=== PATIENT | male | born 1960 | race African-American/Black ===

== ENCOUNTER 2025-07-09 15:22 | Outpatient (CLI) | payer OTHER, SELFPAY ==
--- NOTE | ~2025-07-09 | CT_ITS ---
EXAMINATION: CT_LERTCWO_CT DATE: 07/09/2025 16:09 INDICATION: Right knee osteoarthritis. Preoperative planning. TECHNIQUE: Computed tomography (CT) of the right lower limb was performed without intravenous contrast. Automated exposure control and iterative reconstruction technique were employed. The dose-length product was 2212.76 mGy-cm. COMPARISON: Right knee radiographs 06/24/2025 FINDINGS: There is mild right hip osteoarthritis. The knee demonstrates severe osteoarthritis of the lateral compartment and moderate osteoarthritis of the medial and patellofemoral compartments. There is a moderate-sized knee joint effusion. IMPRESSION: 1. Severe right knee osteoarthritis 2. Moderate-sized right knee joint effusion. Reviewed, dictated and finalized at location E.
--- OUTSIDE RECORDS SUMMARY | 2025-07-09 15:26 | XMS_ITS | Encounter Summary ---
Author Organization [facility] Facility Care Team Providers Care Manager Trading Name Role Phone Axel Moreland MD Primary Care Provid er Lawanda Adams MD Primary Care Provide r Keturah Springer MD Primary Care Provider [phone] Encounter Details Date Type Department Care Team (Latest Contact Info) Description 04/04/2016 Orders Only [facility] CLINCON[facility] ProviderMarino MD [address] [place] [address] Social History Tobacco Use Types Packs/Day Years Used Date Smoking Tobacco: Never Assessed Sex and Gender Information Value Date Recorded Sex Assigned at Not on file Legal Sex Male 12:56 PM PRISON WARDEN Gender Identity Male 12/24/2021 4:10 PM PRISON WARDEN Sexual Orientation Not on file documented as of this encounter Plan of Treatment Not on file documented as of this encounter Procedures Procedure Name Priority Date/Time Associated Diagnosis Comments CARDIOLOGY REPORT 05/10/2016 12: 00 AM CDT documented in this encounter Results * CARDIOLOGY REPORT (05/10/2016 12:00 AM CDT) Anatomical Region Laterality Modality Other Narrative 05/10/2016 12:00 AM CDT Ordered by an unspecified provider. Historical Provider [facility] Final Result documented in this encounter Visit Diagnoses Not on filedocumented in this encounter Care Teams Manager Trading Relationship Specialty Start Date End Date Axel Moreland MD [address] [place] [address] PCP - General Family Medicine 01/31/19 04/04/19 Lawanda Adams MD [address] [place] [address] PCP - General Internal Medicine 04/05/19 01/13/20 Keturah Springer MD [address] [place] [address] PCP - General Family Medicine 01/14/20 documented as of this encounter
--- OUTSIDE RECORDS SUMMARY | 2025-07-09 15:26 | XMS_ITS | Encounter Summary ---
Author Organization [facility] Facility Care Team Providers Care Kier Pleater Name Role Phone Axel Moreland MD Primary Care Provid er Lawanda Adams MD Primary Care Provide r Keturah Springer MD Primary Care Provider [phone] Encounter Details Date Type Department Care Team (Latest Contact Info) Description 11/11/2015 Orders Only [facility] CLINCONV ProviderMarino MD [address] [place] [address] Social History Tobacco Use Types Packs/Day Years Used Date Smoking Tobacco: Never Assessed Sex and Gender Information Value Date Recorded Sex Assigned at Not on file 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 Historical Provider Final Res ult documented in this encounter Visit Diagnoses Not on filedocumented in this encounter Care Teams Kier Pleater Relationship Specialty Start Date End Date Axel Moreland MD [address] [place] [address] PCP - General Family Medicine 01/31/19 04/04/19 Lawanda Adams MD [address] [place] [address] PCP - General Internal Medicine 04/05/19 01/13/20 Keturah Springer MD [address] [place] [address] PCP - General Family Medicine 01/14/20 documented as of this encounter
--- OUTSIDE RECORDS SUMMARY | 2025-07-09 15:26 | XMS_ITS | Clinical Summary ---
Author Organization [facility] Address [facility] [place] [address] Care Team Providers Care Washer Cutter Name Role Phone Keturah Santos MD Primary Care Provider [phone] Allergies Active Allergy Reactions Criticality Noted Date Comments Penicillins GI Upset 08/20/2018 Medications amlodipine 10 MG tablet Take 10 mg by mouth daily. Active potassium chloride 10 MEQ Tab CR tablet Take 1 tablet by mouth 3 (three) times daily. Active lisinopril-hydro CHLOROthiazide 20-25 MG tablet Take 1 tablet by mouth daily. 03/12/2021 Active ezetimibe 10 MG tablet 03/07/2021 Active vitamin D3, cholecalciferol, (CHOLECALCIFEROL ) 5000 UNITS capsule Take 5,000 Units by mouth daily. Active celecoxib 200 MG capsule 03/09/2021 Active vitamin C 500 MG Chew Tab chewable tablet Chew 500 mg by mouth daily. Active rosuvastatin 20 MG tablet 07/24/2020 Active Family History Medical History Relation Comments Stroke Mother Relation Status Comments Brother Father Mother Social History Tobacco Use Types Packs/Day Years Used Date Smoking Tobacco: Former Cigarettes Smokeless Tobacco: Never Alcohol Use Standard Drinks/Week Comments No 0 (1 standard drink = 0.6 oz pur e alcohol) AUDIT-C Answer Date Recorded Frequency of Alcohol Consumption Never 08/20/2018 Average Number of Drinks Not on file 018 Frequency of Binge Drinking Not on file 01/2018 Sex and Gender Information Value Date Recorded Sex Assigned at Not on file Legal Sex Male 5:24 PM CDT Gender Identity Not on file Sexual Orientation Not on file Last Filed Vital Signs Vital Sign Reading Time Taken Comments Blood Pressure 155/88 03/30/2021 12:46 PM CDT Pulse 102 03/30/2021 12:46 PM CDT Temperature 36.7 C (98.1 F) 03/30/2021 12:46 PM CDT Respiratory Rate 18 03/30/2021 12:46 PM CDT Oxygen Saturation 99% 03/30/2021 12:46 PM CDT Inhaled Oxygen Concentration - - Weight 131.5 kg (290 lb) 03/30/2021 12:46 PM CDT Height 172.7 cm (5' 8) 03/30/2021 12:46 PM CDT Body Mass Index 44.09 03/30/2021 12:46 PM CDT Plan of Treatment Health Maintenance Due Date Last Done Comments Colorectal Cancer Screening Colonoscopy (10 Years) 1961 Annual Physical 1964 Hepatitis C 1979 DTaP, Tdap and Td Vaccines ( 1 - Tdap) 1980 Pneumococcal Vaccine: 50+ Ye ars (1 of 1 - PCV) 2011 Zoster Vaccines (1 of 2) 2011 COVID-19 Vaccine (1 - 2023-2 5 season) 2025 RSV Immunization or 60+ Years (1 - 1-dose 75+ series) 2036 Meningococcal B Vaccine Aged Out No l onger eligible based on patient's age to complete this topic Meningococcal Vaccine Aged Out No patricio mohan eligible based on patient's age to complete this topic RSV Immunizations Under 20 Months Aged Out No longer eligible based on patient's age to complete this topic Insurance [facility] Care Teams Washer Cutter Relationship Specialty Start Date End Date Keturah Santos MD PCP - General FAMILY PRACTICE 03/30/21
--- OUTSIDE RECORDS SUMMARY | 2025-07-09 15:26 | XMS_ITS | Encounter Summary ---
Author Organization [facility] Facility Care Team Providers Care Behavioral Health Professional Name Role Phone Axel Moreland MD Primary Care Provid er Lawanda Adams MD Primary Care Provide r Keturah Springer MD Primary Care Provider [phone] [phone] Encounter Details Date Type Department Care Team (Latest Contact Info) Description 12/17/2016 Orders Only [facility] CLINCONV Provider, MD Marino [address] [place] [address] Social History Tobacco Use Types Packs/Day Years Used Date Smoking Tobacco: Never Assessed Sex and Gender Information Value Date Recorded Sex Assigned at Not on file 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 Historical Provider Final Res ult documented in this encounter Visit Diagnoses Not on filedocumented in this encounter Care Teams Behavioral Health Professional Relationship Specialty Start Date End Date Axel Moreland MD [address] [place] [address] PCP - General Family Medicine 01/31/19 04/04/19 Lawanda Adams MD [address] [place] [address] PCP - General Internal Medicine 04/05/19 01/13/20 Keturah Springer MD [address] [place] [address] PCP - General Family Medicine 01/14/20 documented as of this encounter
--- OUTSIDE RECORDS SUMMARY | 2025-07-09 15:26 | XMS_ITS | Clinical Summary ---
Author Organization [facility] Address [address] [place] [address] Care Team Providers Care Water Quality Manager Name Role Phone Keturah Springer MD Primary Care Provider [phone] Allergies Active Allergy Reactions Criticality Noted Date Comments Penicillins Stomach upset,Nausea & Vomiting,Rash Medium 03/07/2018 Pt has stomach pain and diarrhea Rosuvastatin Muscle pain Medium 01/29/2021 Simvastatin Muscle pain Medium 01/29/2021 Medications ascorbic acid (VITAMIN C) 500 mg tablet,chewable Take 1 tablet/chew tab (500 mg total) by mouth daily Vitamin c oral Active cholecalciferol (VITAMIN D-3) 5,000 unit capsule Take 1 capsule (5,000 Units total) by mouth daily Active Allergy Relief, fexofenadine, 180 mg tabletIndicatio ns:Allergic rhinitis due to other allergic trigger, unspecified seasonality TAKE 1 TABLET(180 MG) BY MOUTH DAILY 30 tablet 3 12/30/19 23 Active bempedoic acid (Nexletol) 180 mg tabletIndicatio ns:Mixed hyperlipidemia, Primary hypertension Take 180 mg by mouth daily 30 tablet 5 03/30/20 23 Active blood pressure test kit-large kitIndications: Primary hypertension,Mo rbid obesity with BMI of 40.0-44.9, adult (HCC) 1 kit daily 1 kit 09/24/20 24 Active meloxicam (MOBIC) 15 mg tabletIndicatio ns:Osteoarthrit is Take 1 tablet (15 mg total) by mouth daily 30 tablet 2 11/13/19 25 Active lisinopril-hydr oCHLOROthiazide (ZESTORETIC) 20-25 mg per tablet TAKE 1 TABLET BY MOUTH DAILY 100 tablet 1 11/14/19 25 Active omeprazole (PriLOSEC) 40 mg capsuleIndicati ons:Laryngophar yngeal reflux (LPR) Take 1 capsule (40 mg total) by mouth daily 90 capsule 3 11/29/19 25 026 Active amLODIPine (NORVASC) 10 mg tablet TAKE 1 TABLET(10 MG) BY MOUTH DAILY 90 tablet 1 06/10/20 25 Active ezetimibe (ZETIA) 10 mg tabletIndicatio ns:Dyslipidemia TAKE 1 TABLET(10 MG) BY MOUTH DAILY 90 tablet 1 06/10/20 25 Active atorvastatin (LIPITOR) 10 mg tablet TAKE 1 TABLET(10 MG) BY MOUTH EVERY NIGHT 90 tablet 2 06/13/20 25 Active phentermine (ADIPEX-P) 37.5 mg tablet Take 1 tablet (37.5 mg total) by mouth daily before breakfast 30 tablet 2 06/24/20 25 Active atorvastatin (LIPITOR) 10 mg tablet TAKE 1 TABLET(10 MG) BY MOUTH EVERY NIGHT 90 tablet 2 11/15/19 25 025 Discontinued ezetimibe (ZETIA) 10 mg tabletIndicatio ns:Dyslipidemia Take 1 tablet (10 mg total) by mouth daily 90 tablet 02/13/20 25 025 Discontinued amLODIPine (NORVASC) 10 mg tablet Take 1 tablet (10 mg total) by mouth daily 90 tablet 02/13/20 25 025 Discontinued phentermine (ADIPEX-P) 37.5 mg tabletIndicatio ns:Morbid obesity with BMI of 40.0-44.9, adult (HCC) TAKE 1 TABLET(37.5 MG) BY MOUTH DAILY BEFORE BREAKFAST 30 tablet 2 02/27/20 25 025 Discontinued(Re order) Active Problems Problem Noted Date Diagnosed Date Controlled type 2 diabetes m ellitus without complication, without long-term current use of insulin 02/20/2025 Assessment & Plan (06/30/2025 11:51 PM CDT): Orders: Hemoglobin A1c; Future Comprehensive metabolic panel; Future Urinalysis reflex to microscopic; Future Albumin Creatinine Ratio, Urine; Future Assessment & Plan (04/10/2025 4:36 AM CDT): Chronic Stable Diet controlled Goal Hgba1c<6.5 Obesity (BMI 30-39.9) 02/20/2025 Assessment & Plan (06/30/2025 11:51 PM CDT): Assessment & Plan (04/10/2025 4:37 AM CDT): BMI Follow-up includes: nutrition counseling and exercise counseling. Cont phentermine Sensorineural hearing loss (SNHL) of both ears 0 11/29/2024 Type 2 diabetes mellitus with hyperlipidemia 02/2025 Assessment & Plan (04/10/2025 4:37 AM CDT): Chronic Stable Cont lipitro, zetia Goal: TC<200, LDL<100, TG<150 Hypertension associated with diabetes 11/21/2024 Assessment & Plan (04/10/2025 4:36 AM CDT): Chronic Stable Cont norvasc, zestoretic Goal: SBP<140, DBP<90 Primary osteoarthritis of right knee 11/21/2024 Laryngopharyngeal reflux (LPR) 01/23/2024 Statin intolerance 08/22/2023 Chronic pain of left knee 03/30/2023 Precordial pain 03/30/2023 Assessment & Plan (04/08/2023 6:19 AM CDT): New Follow up with cardiology Chronic pain of right knee 03/30/2023 Lightheadedness 02/17/2023 Morbid obesity with BMI of 40.0-44.9, adult 09/16 Assessment & Plan (06/30/2025 11:51 PM CDT): Assessment & Plan (11/21/2024 2:44 PM LINK AND LINK KNITTING MACHINE OPERATOR): BMI Follow-up includes: nutrition counseling and exercise counseling. Assessment & Plan (10/01/2024 7:03 AM LINK AND LINK KNITTING MACHINE OPERATOR): BMI Follow-up includes: nutrition counseling and exercise counseling. Assessment & Plan (10/23/2023 7:08 PM LINK AND LINK KNITTING MACHINE OPERATOR): BMI Follow-up includes: nutrition counseling and exercise counseling. Start wegovy Chronic pain of both knees 09/29/2022 Chronic bilateral low back pain without sciatica 09/29/2022 Mixed hyperlipidemia 08/06/2021 Assessment & Plan (06/30/2025 11:51 PM CDT): Orders: Comprehensive metabolic panel; Future Assessment & Plan (04/10/2025 4:37 AM CDT): Chronic Stable Cont lipitor, zetia Goal: TC<200, LDL<100, TG<150 Assessment & Plan (10/01/2024 7:03 AM LINK AND LINK KNITTING MACHINE OPERATOR): Chronic Is Stable Cont lipitor, zetia, nexletol Goal: TC<200, LDL<100, TG<150 Assessment & Plan (10/23/2023 7:08 PM LINK AND LINK KNITTING MACHINE OPERATOR): Chronic Stable Cont lipitor, zetia, nexletol Goal: TC<200, LDL<100, TG<150 Assessment & Plan (04/08/2023 6:19 AM CDT): Uncontrolled Start nexletol Goal: TC<200, LDL<100, TG<150 Assessment & Plan (04/05/2022 4:58 AM CDT): Chronic, uncontrolled Add nexletol Cont zetia Side effects: Intolerant to statins Goal: TC<200, LDL<100, TG<150 Assessment & Plan (08/17/2021 4:49 AM CDT): Chronic Cont zetia Goal: TC<200, LDL<100, TG<150 Left leg pain 03/31/2021 Assessment & Plan (03/31/2021 12:27 PM CDT): New Likely sciatica Order medrol pack, Ibuprofen, percocet Refer to pain management Acute pain of right knee 09/05/2020 Assessment & Plan (03/16/2021 9:08 PM CDT): Chronic Cont celebrex Assessment & Plan (09/07/2020 5:56 PM LINK AND LINK KNITTING MACHINE OPERATOR): New Order celebrex Order right knee xray Because Of current COVID pandemic, will avoid PT for now Pharyngoesophageal dysphagia 03/24/2020 Adult general medical exam 01/09/2020 Assessment & Plan (06/30/2025 11:51 PM CDT): Orders: PSA screen; Future Bilateral impacted cerumen 01/09/2020 Assessment & Plan (01/09/2020 8:06 PM CDT): New Refer to ENT Hypokalemia 01/09/2020 Assessment & Plan (01/09/2020 8:07 PM CDT): Stable Cont klorcon Morbid obesity due to excess calories 01/31/2017 Assessment & Plan (02/15/2021 9:26 PM CDT): BMI Follow-up includes: nutrition counseling and exercise counseling. Hypertension 06/07/2016 Assessment & Plan (06/30/2025 11:51 PM CDT): Orders: Comprehensive metabolic panel; Future Assessment & Plan (04/10/2025 4:36 AM CDT): Chronic Stable Cont norvasc, zestoretic Goal: SBP<140, DBP<90 Assessment & Plan (10/01/2024 7:03 AM LINK AND LINK KNITTING MACHINE OPERATOR): Chronic Is Stable Cont norvasc, zestoretic Goal: SBP<140, DBP<90 Assessment & Plan (10/23/2023 7:07 PM LINK AND LINK KNITTING MACHINE OPERATOR): Chronic Stable Cont norvasc, zestoretic Goal: SBP<140, DBP<90 Assessment & Plan (04/05/2022 4:57 AM CDT): Stable Cont amlodipine, zestoretic Goal: SBP<140, DBP<90 Assessment & Plan (08/17/2021 4:50 AM CDT): Stable Cont amlodipine, zestoretic Goal: SBP<140, DBP<90 Assessment & Plan (03/31/2021 12:32 PM CDT): Stable Cont amlodipine, zestoretic Assessment & Plan (02/15/2021 9:25 PM CDT): Stable Cont amlodipine, zestoretic Assessment & Plan (01/09/2020 8:06 PM CDT): Stable Cont amlodipine, zestoretic Metabolic syndrome 06/07/2016 Assessment & Plan (06/30/2025 11:51 PM CDT): Assessment & Plan (04/10/2025 4:37 AM CDT): BMI Follow-up includes: nutrition counseling and exercise counseling. Cont phentermine Assessment & Plan (10/23/2023 7:08 PM LINK AND LINK KNITTING MACHINE OPERATOR): New Order wegovy Obesity 06/07/2016 Abnormal EKG 05/11/2016 Chest pain, unspecified 05/11/2016 Allergic rhinitis Assessment & Plan (04/05/2022 4:59 AM CDT): Stable Cont joe Assessment & Plan (08/17/2021 4:50 AM CDT): Stable Cont joe Resolved Problems Problem Noted Date Diagnosed Date Resolved Date Hyperglycemia 08/04/2020 11/21/2024 Assessment & Plan (10/01/2024 7:03 AM LINK AND LINK KNITTING MACHINE OPERATOR): Chronic Stable Diet controlled Assessment & Plan (08/17/2021 4:50 AM CDT): Stable Diet controlled Assessment & Plan (02/15/2021 9:27 PM CDT): Stable Diet controlled Dyslipidemia 05/11/2016 08/06/2021 Assessment & Plan (03/31/2021 12:32 PM CDT): Chronic Cont zetia Assessment & Plan (03/16/2021 9:09 PM CDT): Chronic Cont zetia Assessment & Plan (02/15/2021 9:26 PM CDT): Uncontrolled Add zetia daily Assessment & Plan (01/09/2020 8:06 PM CDT): Stable Follow low cholesterol diet Encounters Date Type Department Care Team Description 07/04/2025 Telephone [facility] Medicine [address] [place] [phone] Keturah Springer MD Medical Records Request 06/24/2025 3:30 PM CDT Office Visit [facility] Medicine [address] [place] [phone] Keturah Springer MD Mixed hyperlipidemia (Primary Dx); Controlled type 2 diabetes mellitus without complication, without long-term current use of insulin; Primary hypertension; Morbid obesity with BMI of 40.0-44.9, adult (HCC); Metabolic syndrome; Obesity (BMI 30-39.9); Adult general medical exam 06/24/2025 Telephone [facility] Cardiology [address] [place] [address] [phone] Jey Hawley MD 05/06/2025 Telephone [facility] Family Medicine [address] [place] [phone] Keturah Springer MD 05/01/2025 2:45 PM CDT Office Visit [facility] Cardiology [address] [facility] [address] [place] [address] Jey Hawley MD Primary hypertension (Primary Dx); Dyslipidemia; Metabolic syndrome from Last 3 Months Immunizations Immunization Administration Dates Next Due Influenza, Quadrivalent, Spl it, Pediatric, Preservative Free, Intramuscular 07/17/2022 Influenza, Quadrivalent, Spl it, Preservative Free, Intramuscular 08/04/2020 Influenza, Trivalent, Preser vative Free, Intramuscular 07/23/2024 Influenza, Unspecified 07/11/2023,2021,08/04/2020(Defer red: Patient Refused) Moderna SARS-CoV-2 Monovalen t Vaccination (12+ YRS) 12/14/2020,11/17/2020 Medical History Medical History Date Comments Chest pain Abnormal EKG HTN (hypertension) HLD (hyperlipidemia) Allergic rhinitis HL (hearing loss) Arthritis Laryngopharyngeal reflux (LPR) Right knee injury Family History Medical History Relation Name Comments No Known Problems Father No Known Problems Mother Relation Name Status Comments Father Mother Social History Tobacco Use Types Packs/Day Years Used Date Smoking Tobacco: Former Cigarettes Q uit: 1989 Smokeless Tobacco: Never Tobacco Cessation:Counseling Given: Not Answered Alcohol Use Standard Drinks/Week Comments Never 0 (1 standard drink = 0.6 oz pur e alcohol) AUDIT-C Answer Date Recorded Q1: How often do you have a drink containing alcohol? Never 09/29/2022 Q2: How many drinks containi ng alcohol do you have on a typical day when you are drinking? Patient does not drink Q3: How often do you have si x or more drinks on one occasion? Never 09/29/2022 PHQ-2 Answer Date Recorded PHQ-2 Total Score (If total score is 3 or more points, staff should administer the PHQ-9) 1 06/24/2025 PHQ-9 Answer Date Recorded PHQ-9 Total Score 2 06/24/2025 Sex and Gender Information Value Date Recorded Sex Assigned at Not on file Legal Sex Male 12:56 PM LINK AND LINK KNITTING MACHINE OPERATOR Gender Identity Male 12/24/2021 4:10 PM LINK AND LINK KNITTING MACHINE OPERATOR Sexual Orientation Not on file Obstetrics History Last Filed Vital Signs Vital Sign Reading Time Taken Comments Blood Pressure 152/80 06/24/2025 3:52 PM CDT Pulse 92 06/24/2025 3:52 PM CDT Temperature 36.7 C (98 F) 06/24/2025 3:52 PM CDT Respiratory Rate 16 06/24/2025 3:52 PM CDT Oxygen Saturation 98% 06/24/2025 3:52 PM CDT Inhaled Oxygen Concentration - - Weight 112 kg (247 lb) 06/24/2025 3:52 PM CDT Height 172.7 cm (5' 8) 06/24/2025 3:52 PM CDT Body Mass Index 37.56 06/24/2025 3:52 PM CDT Plan of Treatment Health Maintenance Due Date Last Done Comments Hepatitis C Screening 1961 Dilated Eye Exam 1961 Foot Exam 1961 DTaP/Tdap/Td Vaccine (1 - Tdap) 1972 Hepatitis B Screening 1979 Regular Well Visit/Exam 18-64 1979 Pneumococcal vaccine <65 (1 of 2 - PCV) 1980 Zoster Vaccine (1 of 2) 2011 Covid-19 Vaccine (6 - 2024-2 6 season) 2025 05/14/2022, 12/19/2021, 05/22/2021, Additional history exists Influenza Vaccine (#1) 2025 , 07/11/2023, 07/17/2022, Additional history exists Hemoglobin A1C 12/19/2025 06/21/2025, 05/0 11/2024, 11/12/2024, Additional history exists Albumin Creatinine Ratio, Urine 02/15/2026 Lipid Panel 06/21/2026 06/21/2025, 10/18, 07/07/2024, Additional history exists eGFR 06/21/2026 06/21/2025, 05/0 11/2024, 11/12/2024, Additional history exists Depression Screening 06/24/2026 06/24/2025, 06/24/2025, 04/16/2024, Additional history exists Prostate Cancer Screening-PSA 07/07/2026, 02/05/2023, 03/27/2022, Additional history exists Colon Cancer Screening-Colonoscopy 11/27/2033 11/27/2023 Colon Cancer Screening-CT Colonography Discontinued 11/27/2023 Colon Cancer Screening-DNA Stool Discontinued 11/27/19 Colon Cancer Screening-FIT Discontinued 11/27/2023 Colon Cancer Screening-Sigmoidoscopy Discontinued 11/27/2023 Procedures Procedure Name Priority Date/Time Associated Diagnosis Comments LIPID PANEL Routine 06/21/2025 9:32 AM CDT Mixed hyperlipidemia COMPREHENSIVE METABOLIC PANEL Routine 06/21/2025 9:32 AM CDT Mixed hyperlipidemia Controlled type 2 diabetes mellitus without complication, without long-term current use of insulin Hypertension associated with diabetes (HCC) HEMOGLOBIN A1C Routine 06/21/2025 9:32 AM CDT Controlled type 2 diabetes mellitus without complication, without long-term current use of insulin ALBUMIN CREATININE RATIO, URINE Routine 02/15/2025 10:54 AM CDT Type 2 diabetes mellitus with hyperlipidemia (HCC) Morbid obesity with BMI of 40.0-44.9, adult (HCC) Hypertension associated with diabetes (HCC) PSA SCREEN Routine 07/07/2024 10:16 AM CDT Morbid obesity with BMI of 40.0-44.9, adult (HCC) Primary hypertension Mixed hyperlipidemia Hyperglycemia Adult general medical exam COLONOSCOPY Routine 11/27/2023 from Last 3 Months or Most Recently Relevant to Health Maintenance Results * (ABNORMAL) Hemoglobin A1c (06/21/2025 9:32 AM CDT) [facility] Hgb A1C 6.0(H) 4.8 - 5.6 % [facility] - 01 Comment: Prediabetes: 5.7 - 6.4 Diabetes: >6.4 Glycemic control for adults with diabetes: <7.0 Blood 06/21/2025 9:32 AM CDT 06/21/2025 Narrative [facility] - 06/22/2025 7:37 AM CDT Performed at: [facility] [id number] Head Irrigator: Beltran Keen PhD, Phone: [phone] Keturah Springer MD LAB BLOOD ORDERABLES Cassidy l Result Performing Organization Address [facility] Co de Phone Number [facility] * Lipid panel (06/21/2025 9:32 AM CDT) Cholesterol 140 100 - 199 mg/dL [facility] - 01 Triglycerides 66 0 - 149 mg/dL [facility] - 01 HDL Cholesterol 46 >39 mg/dL [facility] - 01 VLDL 13 5 - 40 mg/dL [facility] - 01 LDL, calculated 81 0 - 99 mg/dL [facility] - 01 Blood 06/21/2025 9:32 AM CDT 06/21/2025 Narrative [facility] - 06/22/2025 9:36 AM CDT Performed at: [address] [place] [id number] Head Irrigator: Beltran Keen PhD, Phone: [phone] Keturah Springer MD LAB BLOOD ORDERABLES Cassidy l Result Performing Organization Address [facility] Co de Phone Number [facility] * Comprehensive metabolic panel (06/21/2025 9:32 AM CDT) Glucose 85 70 - 99 mg/dL [facility] - 01 BUN 12 8 - 27 mg/dL [facility] - 01 Creatinine, Serum 1.05 0.76 - 1.27 mg/dL [facility] - 01 eGFR 79 >59 mL/min/1.73 [facility] - 01 BUN/creat ratio 11 10 - 24 [facility] - 01 Sodium 136 134 - 144 mmol/L [facility] - 01 Potassium, sr 4.3 3.5 - 5.2 mmol/L [facility] - 01 Chloride 100 96 - 106 mmol/L [facility] - 01 CO2 23 20 - 29 mmol/L [facility] - 01 Calcium 9.4 8.6 - 10.2 mg/dL [facility] - 01 Protein, sr 7.1 6.0 - 8.5 g/dL [facility] - 01 Albumin 4.2 3.9 - 4.9 g/dL [facility] - 01 Globulin, Total 2.9 1.5 - 4.5 g/dL [facility] - 01 Bilirubin, Total 0.6 0.0 - 1.2 mg/dL [facility] - 01 Alk phos 83 44 - 121 IU/L [facility] - 01 Comment: Effective July 01, 2025 Alkaline Phosphatase reference interval will be changing to: Age Male Female 0 - 5 days 47 - 127 47 - 127 6 - 10 days 29 - 242 29 - 242 11 - 20 days 109 - 357 109 - 357 21 - 30 days 94 - 494 94 - 494 1 - 2 months 149 - 539 149 - 539 3 - 6 months 131 - 452 131 - 452 7 - 11 months 117 - 401 117 - 401 12 months - 6 years 158 - 369 158 - 369 7 - 12 years 150 - 409 150 - 409 13 years 156 - 435 78 - 227 14 years 114 - 375 64 - 161 15 years 88 - 279 56 - 134 16 years 74 - 207 51 - 121 17 years 63 - 161 47 - 113 18 - 20 years 51 - 125 42 - 106 21 - 50 years 47 - 123 41 - 116 51 - 80 years 49 - 135 51 - 125 >80 years 48 - 129 48 - 129 AST 19 0 - 40 IU/L [facility] - 01 ALT 18 0 - 44 IU/L [facility] - 01 Blood 06/21/2025 9:32 AM CDT 06/21/2025 Narrative [facility] - 06/22/2025 7:37 AM CDT Performed at: - [address] [id number] Head Irrigator: Beltran Keen PhD, Phone: [phone] us Keturah Springer MD LAB BLOOD ORDERABLES Cassidy acuna Result [facility] - 01 * Albumin Creatinine Ratio, Urine (02/15/2025 10:54 AM CDT) Creatinine ur 230.8 Not Estab. mg/dL [facility] - 01 Microalbumin, ur 10.6 Not Estab. ug/mL [facility] - 01 Microalbumin/cre at ratio 5 0 - 29 mg/g creat [facility] - 01 Comment: Normal: 0 - 29 Moderately increased: 30 - 300 Severely increased: >300 Urine 02/15/2025 10:5 4 AM CDT 02/15/2025 Narrative [facility] - 02/16/2025 4:10 PM CDT Performed at: [address] [place] [id number] Head Irrigator: Beltran Keen PhD, Phone: [phone] Keturah Springer MD LAB URINE ORDERABLES Cassidy l Result Performing Organization Address [facility] Co de Phone Number [facility] - * PSA screen (07/07/2024 10:16 AM CDT) Pathologist [facility] PSA 0.6 0.0 - 4.0 ng/mL [facility] - Comment: Marleni ECLIA methodology. According to the [place] [employer], Serum PSA should decrease and remain at undetectable levels after radical prostatectomy. The AUA defines biochemical recurrence as an initial PSA value 0.2 ng/mL or greater followed by a subsequent confirmatory PSA value 0.2 ng/mL or greater. Values obtained with different assay methods or kits cannot be used interchangeably. Results cannot be interpreted as absolute evidence of the presence or absence of malignant disease. Blood 07/07/2024 10:1 6 AM CDT 07/07/2024 Narrative [facility] - 07/08/2024 7:35 AM CDT Performed at: [address] [place] [id number] Head Irrigator: Beltran Keen PhD, Phone: [phone] Keturah Springer MD LAB BLOOD ORDERABLES Cassidy l Result Performing Organization Address [facility]/ZIP Co de Phone Number [facility] - * Colonoscopy (11/27/2023) Anatomical Region Laterality Modality Other [facility] Provider ENDOSCOPY PROCEDURES Cassidy l Result from Last 3 Months or Most Recently Relevant to Health Maintenance Insurance [facility] [employer] [employer] [facility] [employer] PL[employer] Care Teams Water Quality Manager Relationship Specialty Start Date End Date Keturah Springer MD PCP - General Family Medicine 01/14/20
--- NOTE | 2025-07-09 15:29 | ECG_ITS ---
Test Date: 2025-07-09 15:41:11 Measurements Intervals [place] Rate: 79 P: 57 HI: 158 QRS: -4 QRSD: 81 T: 50 QT: 347 QTc: 400 Interpretive Statements SINUS RHYTHM MODERATE VOLTAGE CRITERIA FOR LVH, CONSIDER NORMAL VARIANT [MEETS CRITERIA IN ONE OF: R(aVL), S(V1), R(V5), R(V5/V6)+S(V1)] No previous ECG available for comparison Electronically Signed On 07-09-2025 15:56:59 CDT by Valentino Lopez M.D.
== END 2025-07-09 15:23 | disposition home or self-care (01) ==
PROVIDERS: PCP Family Medicine; Visit Provider Orthopaedic Surgery
DX: M17.11 Unilateral primary osteoarthritis, right knee (principal); I10 Essential (primary) hypertension
CPT/HCPCS: 73700; 93005

== ENCOUNTER 2025-09-18 13:50 | Outpatient (CLI) | payer OTHER, SELFPAY ==
--- OUTSIDE RECORDS SUMMARY | 2025-09-18 15:13 | XMS_ITS | Encounter Summary ---
Author Organization [facility] Facility Care Team Providers Care Service Counselor Name Role Phone Axel Moreland MD Primary Care Provid er Lawanda Adams MD Primary Care Provide r Keturah Springer MD Primary Care Provider [phone] [phone] Encounter Details Date Type Department Care Team (Latest Contact Info) Description 12/17/2016 Orders Only [facility] CLINCONV Provider, MD Marino [address] [place], [place] [id number] Social History Tobacco Use Types Packs/Day Years Used Date Smoking Tobacco: Never Assessed Sex and Gender Information Value Date Recorded Sex Assigned at Not on file Legal Sex 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
--- OUTSIDE RECORDS SUMMARY | 2025-09-18 15:13 | XMS_ITS | Encounter Summary ---
Author Organization [facility] Healthcare Address [address] [place] [address] Care Team Providers Care Advanced Manufacturing Vice President Name Role Phone Keturah Springer MD Primary Care Provider [phone] Reason for Visit * Reason Onset Date Comments Symptom Based Call 09/16/2025 Encounter Details Date Type Department Care Team (Late st Contact Info) Description 09/16/2025 Telephone [facility] Family Medicine [address] [place] [address] [address] [place] [address] Keturah Springer MD [address] [place] [address] [address] [place] [address] Symptom Based Call Social History Tobacco Use Types Packs/Day Years Used Date Smoking Tobacco: Former Cigarettes Q uit: 1989 Smokeless Tobacco: Never Alcohol Use Standard Drinks/Week Comments Never 0 [...] on file Legal 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 Non-Emergent. Is this a new or reoccurring symptom(s)? Reoccurring What have you tried to help your symptom(s)? Meloxicam, biofreeze Why was appointment not scheduled? Patient seeking care without an appointment; appointment was offered by [facility]. Additional Comments: Patient is having surgery later this month and will need to be off work for 3 months so he cannot afford to take any more time off of work. Patient requesting rx for celebrex andlidocaine patches or anything else pcp recommends. [facility] on file Does message need to be routed? Yes-Action Needed AURANT LINE COOK documented in this encounter Plan of Treatment Not on file documented as of this encounter Visit Diagnoses Not on filedocumented in this encounter Care Teams Advanced Manufacturing Vice President Relationship Specialty Start Date End Date Keturah Springer MD PCP - General Family Medicine 01/14/20 documented as of this encounter
--- OUTSIDE RECORDS SUMMARY | 2025-09-18 15:13 | XMS_ITS | Clinical Summary ---
Author Organization [facility] Address [facility] [place] [address] Care Team Providers Care Chain Sales Consultant Name Role Phone Keturah Santos MD Primary Care Provider [phone]- [phone] Allergies Active Allergy Reactions Criticality Noted Date [...] of 2) 2011 COVID-19 Vaccine (1 - 2024-2 6 season) 2025 Influenza Adult (#1) 2025 08/04/2020 RSV Immunization or 60+ Years (1 - 1-dose 75+ series) 2036 Hepatitis A Vaccines Aged Out No long er eligible based on patient's age to complete this topic Meningococcal B Vaccine Aged Out No l onger eligible based on patient's age to complete this topic Meningococcal Vaccine Aged Out No patricio mohan eligible based on patient's age to complete this topic RSV Immunizations Under 20 Months Aged Out No longer eligible based on patient's age to complete this topic Insurance R Member Subscriber Plan / Payer (Ef fective 2020-Present) Name:Mello Fatima Relation to Subscriber:Self Name:Mello Fatima Payer ID:[id number] (NAIC) Type:Not on file Address: [place] [id number] [place] [id number] Care Teams Chain Sales Consultant Relationship Specialty Start Date End Date Keturah Santos MD PCP - General FAMILY PRACTICE 03/30/21
--- OUTSIDE RECORDS SUMMARY | 2025-09-18 15:13 | XMS_ITS | Clinical Summary ---
Author Organization [facility] Address [address] [place] [address] Care Team Providers Care Business Transformation Consultant Name Role Phone Keturah Springer MD Primary Care Provider [phone] [phone] Allergies Active Allergy Reactions Criticality Noted Date [...] (5,000 Units total) by mouth daily Active bempedoic acid (Nexletol) 180 mg tabletIndication s:Mixed hyperlipidemia,P rimary hypertension Take 180 mg by mouth daily 30 tablet 5 03/30/20 23 Active blood pressure test kit-large kitIndications:P rimary hypertension,Mor bid obesity with BMI of 40.0-44.9, adult (HCC) 1 kit daily 1 kit 09/24/20 24 Active meloxicam (MOBIC) 15 mg tabletIndication s:Osteoarthritis Take 1 tablet (15 mg total) by mouth daily 30 tablet 2 11/13/19 25 Active omeprazole (PriLOSEC) 40 mg capsuleIndicatio ns:Laryngopharyn geal reflux (LPR) Take 1 capsule (40 mg total) by mouth daily 90 capsule 3 11/29/19 25 026 Active amLODIPine (NORVASC) 10 mg tablet TAKE 1 TABLET(10 MG) BY MOUTH DAILY 90 tablet 1 06/10/20 25 Active ezetimibe (ZETIA) 10 mg tabletIndication s:Dyslipidemia TAKE 1 TABLET(10 MG) BY MOUTH DAILY 90 tablet 1 06/10/20 25 Active atorvastatin (LIPITOR) 10 mg tablet TAKE 1 TABLET(10 MG) BY MOUTH EVERY NIGHT 90 tablet 2 06/13/20 25 Active phentermine (ADIPEX-P) 37.5 mg tablet Take 1 tablet (37.5 mg total) by mouth daily before breakfast 30 tablet 2 06/24/20 25 Active fluticasone propionate (FLONASE) 50 mcg/actuation nasal sprayIndications :Nasal congestion Administer 2 sprays into each nostril daily 16 g 08/02/20 25 Active fexofenadine (JOE) 180 mg tabletIndication s:Nasal congestion Take 1 tablet (180 mg total) by mouth daily as needed (allergies) 30 tablet 08/02/20 25 Active lisinopril-hydro CHLOROthiazide (ZESTORETIC) 20-25 mg per tablet TAKE 1 TABLET BY MOUTH DAILY 90 tablet 08/27/20 25 Active lisinopril-hydro CHLOROthiazide (ZESTORETIC) 20-25 mg per tablet TAKE 1 TABLET BY MOUTH DAILY 100 tablet 1 11/14/19 25 025 Discontinued Active Problems Problem Noted Date Diagnosed Date Nasal congestion 08/02/2025 Assessment & Plan (08/12/2025 3:23 AM CDT): Orders: azithromycin (ZITHROMAX) 250 mg tablet; Take 2 tabs (500 mg) by mouth today, than 1 tab (250 mg) daily for 4 days. fluticasone propionate (FLONASE) 50 mcg/actuation nasal spray; Administer 2 sprays into each nostril daily fexofenadine (JOE) 180 mg tablet; Take 1 tablet (180 mg total) by mouth daily as needed (allergies) Controlled type 2 diabetes m ellitus without [...] CDT): Assessment & Plan (11/21/2024 2:44 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): BMI Follow-up includes: nutrition counseling and exercise counseling. Assessment & Plan (10/01/2024 7:03 AM SECURITY SYSTEM ADMINISTRATOR): BMI Follow-up includes: nutrition counseling and exercise counseling. Assessment & Plan (10/23/2023 7:08 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): BMI Follow-up includes: nutrition counseling and exercise counseling. Start wegovy Chronic pain of both knees 09/29/2022 Chronic bilateral low back pain without sciatica 09/29/2022 Mixed hyperlipidemia 08/06/2021 Assessment & Plan (08/12/2025 3:23 AM CDT): Chronic Stable Cont lipitor, zetia, nexletol Goal: TC<200, LDL<100, TG<150 Assessment & Plan (06/30/2025 11:51 PM CDT): Orders: Comprehensive metabolic panel; Future Assessment & Plan (04/10/2025 4:37 AM CDT): Chronic Stable Cont lipitor, zetia Goal: TC<200, LDL<100, TG<150 Assessment & Plan (10/01/2024 7:03 AM SECURITY SYSTEM ADMINISTRATOR): Chronic Is Stable Cont lipitor, zetia, nexletol Goal: TC<200, LDL<100, TG<150 Assessment & Plan (10/23/2023 7:08 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): Chronic Stable Cont lipitor, zetia, nexletol Goal: [...] celebrex Assessment & Plan (09/07/2020 5:56 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): New Order celebrex Order right knee xray [...] exercise counseling. Hypertension 06/07/2016 Assessment & Plan (08/12/2025 3:23 AM CDT): Chronic Stable Cont lisinopril/hctz Goal: SBP<140, DBP<90 Assessment & Plan (06/30/2025 11:51 PM CDT): Orders: Comprehensive metabolic panel; Future Assessment & Plan (04/10/2025 4:36 AM CDT): Chronic Stable Cont norvasc, zestoretic Goal: SBP<140, DBP<90 Assessment & Plan (10/01/2024 7:03 AM SECURITY SYSTEM ADMINISTRATOR): Chronic Is Stable Cont norvasc, zestoretic Goal: SBP<140, DBP<90 Assessment & Plan (10/23/2023 7:07 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): Chronic Stable Cont norvasc, zestoretic Goal: SBP<140, [...] phentermine Assessment & Plan (10/23/2023 7:08 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): New Order sarahgovy Obesity 06/07/2016 Abnormal EKG 05/11/2016 Chest pain, unspecified 05/11/2016 Allergic rhinitis Assessment & Plan (04/05/2022 4:59 AM CDT): Stable Cont joe Assessment & Plan (08/17/2021 4:50 AM CDT): Stable Cont joe Resolved Problems Problem Noted Date Diagnosed Date Resolved Date Hyperglycemia 08/04/2020 11/21/2024 Assessment & Plan (10/01/2024 7:03 AM SECURITY SYSTEM ADMINISTRATOR): Chronic Stable Diet controlled Assessment & Plan [...] Encounters Date Type Department Care Team Description 09/17/2025 Nurse Triage [facility] Family Medicine [address] [place] [address] [place] [phone] Keturah Springer MD 09/16/2025 Telephone [facility] Family Medicine [address] [place] [address] [address] [place] [phone] Keturah Springer MD Symptom Based Call 08/05/2025 Telephone [facility] Cardiology [address] [place] [address] [phone] Jey Hawley MD 08/02/2025 9:15 AM CDT Telemedicine [facility] Medicine [address] [place] [address] [address] [place] [phone] Keturah Springer MD Nasal congestion (Primary Dx); Mixed hyperlipidemia; Primary hypertension 07/31/[address] [place] [phone] Keturah Springer MD Symptom Based Call 07/04/[address] [place] [phone] Keturah Springer MD Medical Records Request 06/24/2025 3:30 PM CDT Office Visit [address] [place] [phone] Keturah Springer MD Mixed hyperlipidemia (Primary Dx); Controlled type 2 diabetes mellitus without complication, without long-term current use of insulin; Primary hypertension; Morbid obesity with BMI of 40.0-44.9, adult (HCC); Metabolic syndrome; Obesity (BMI 30-39.9); Adult general medical exam 06/24/2025 Telephone [facility] Cardiology [address] [place] [address] [phone] Jey Hawley MD from Last 3 Months Immunizations Immunization Administration Dates Next Due Influenza, Quadrivalent, Spl it, Pediatric, Preservative Free, Intramuscular 07/17/2022 Influenza, Quadrivalent, Spl it, Preservative Free, Intramuscular 08/04/2020 Influenza, Trivalent, Preser vative Free, Intramuscular 07/23/2024 Influenza, Unspecified 07/24/2025,2022,07/17/2022,08/04(Deferred: Patient Refused) Moderna SARS-CoV-2 Monovalen t Vaccination [...] on file Legal Sex Male 12:56 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 Gender Identity Male 12/24/2021 4:10 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 Sexual Orientation Not on file Last Filed Vital Signs Vital Sign Reading Time Taken Comments Blood Pressure 152/80 06/24/2025 3:52 PM CDT Pulse 92 06/24/2025 3:52 PM CDT Temperature 36.7 C (98 F) 06/24/2025 3:52 PM CDT Respiratory Rate 16 06/24/2025 3:52 PM CDT Oxygen Saturation 98% 06/24/2025 3:52 PM CDT Inhaled Oxygen Concentration - - Weight 112 kg (246 lb 14.6 oz) 08/02/2025 9:44 A M CDT Height 172.7 cm (5' 7.99) 08/02/2025 9:44 AM CD T Body Mass Index 37.55 08/02/2025 9:44 AM CDT Plan of Treatment Health Maintenance Due [...] 2025 05/14/2022, 12/19/2021, 05/22/2021, Additional history exists Hemoglobin A1C 12/19/2025 06/21/2025, 050 11/2024, 11/12/2024, Additional history exists Albumin Creatinine Ratio, Urine 02/15/2026 Lipid Panel 06/21/2026 06/21/2025, 10/18, 07/07/2024, Additional history exists eGFR 06/21/2026 06/21/2025, 050 11/2024, 11/12/2024, Additional history exists Depression Screening 06/24/2026 06/24/2025, 06/24/2025, 04/16/2024, Additional history exists Prostate Cancer Screening-PSA 07/07/2026, 02/05/2023, 03/27/2022, Additional history exists Colon Cancer Screening-Colonoscopy 11/27/2033 11/27/2023 Colon Cancer Screening-CT Colonography Discontinued 11/27/2023 Colon Cancer Screening-DNA Stool Discontinued 11/27/19 Colon Cancer Screening-FIT Discontinued 11/27/2023 Colon Cancer Screening-Sigmoidoscopy Discontinued 11/27/2023 Influenza Vaccine Completed 07/24/2025, , 07/11/2023, Additional history exists Procedures Procedure Name Priority Date/Time Associated Diagnosis [...] (ABNORMAL) Hemoglobin A1c (06/21/2025 9:32 AM CDT) Hgb A1C 6.0(H) 4.8 - 5.6 % [facility] - 01 Comment: Prediabetes: 5.7 - 6.4 Diabetes: >6.4 Glycemic control for adults with diabetes: <7.0 Blood 06/21/2025 9:32 AM CDT 06/21/2025 Narrative [facility] - 06/22/2025 7:37 AM CDT Performed at: [address] [id number] Post Splitter: Beltran Keen PhD, Phone: [phone] us Keturah Springer MD LAB BLOOD ORDERABLES Cassidy l Result [facility] - 01 * Lipid panel (06/21/2025 9:32 AM CDT) [...] - 06/22/2025 9:36 AM CDT Performed at: [address] [id number] Post Splitter: Beltran Keen PhD, Phone: [phone] us Keturah Springer MD LAB BLOOD ORDERABLES Cassidy acuna Result [facility] - 01 * Comprehensive metabolic panel (06/21/2025 9:32 AM [...] - 06/22/2025 7:37 AM CDT Performed at: [address] [id number] Post Splitter: Beltran Keen PhD, Phone: [phone] Keturah Springer MD LAB BLOOD ORDERABLES Cassidy l Result Performing Organization Address [facility] de Phone Number [facility] - * Albumin Creatinine Ratio, Urine (02/15/2025 10:54 [...] - 02/16/2025 4:10 PM CDT Performed at: [address] [id number] Post Splitter: Beltran Keen PhD, Phone: [phone] Keturah Springer MD LAB URINE ORDERABLES Cassidy l Result Performing Organization Address [facility] Co de Phone Number [facility] - * PSA screen (07/07/2024 10:16 AM CDT) PSA 0.6 0.0 - 4.0 ng/mL [facility] - 01 Comment: Marleni ECLIA methodology. According to the [employer] [employer], Serum PSA should decrease and [...] - 07/08/2024 7:35 AM CDT Performed at: - [place] [id number] Post Splitter: Beltran Keen PhD, Phone: [phone] Keturah Springer MD LAB BLOOD ORDERABLES Cassidy l Result [facility] - 01 * Colonoscopy (11/27/2023) Anatomical Region Laterality Modality Other Historical Provider ENDOSCOPY PROCEDURES Cassidy kalpana Result from Last 3 Months or Most Recently Relevant to [place] [id number] [facility] Care Teams Business Transformation Consultant Relationship Specialty Start Date End Date Keturah Springer MD PCP - General Family Medicine 01/14/20
--- OUTSIDE RECORDS SUMMARY | 2025-09-18 15:13 | XMS_ITS | Encounter Summary ---
Author Organization [facility] Facility Care Team Providers Care Boat Crew Deck Hand Name Role Phone Aexl Moreland MD Primary Care Provid er Lawanda Adams MD Primary Care Provide r Keturah Springer MD Primary Care Provider [phone] [phone] Encounter Details Date Type Department Care Team (Latest Contact Info) Description 11/11/2015 Orders Only [facility] CLINCONV ProviderMarino MD [address] [place] [address] Social History Tobacco Use Types Packs/Day Years Used Date Smoking Tobacco: Never Assessed Sex and Gender Information Value Date Recorded Sex Assigned at Not on file Legal Sex Male 12:56 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
--- OUTSIDE RECORDS SUMMARY | 2025-09-18 15:13 | XMS_ITS | Encounter Summary ---
Author Organization [facility] Facility Care Team Providers Care Core Laying Machine Operator Name Role Phone Axel Moreland MD Primary Care Provid er Lwaanda Adams MD Primary Care Provide r Keturah Springer MD Primary Care Provider [phone] -[phone] Encounter Details Date Type Department Care Team (Latest Contact Info) Description 04/04/2016 Orders Only [facility] CLINCONV ProviderMarino MD [address] [place], [place] [id number] Social History Tobacco Use Types Packs/Day Years Used Date Smoking Tobacco: Never Assessed Sex and Gender Information Value Date Recorded Sex Assigned at Not on file 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
--- OUTSIDE RECORDS SUMMARY | 2025-09-18 15:13 | XMS_ITS | Encounter Summary ---
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 TING CONTRACTOR * Telephone Encounter - Shannan Rouse - 09/17/2025 11:32 AM CST [facility] asked for results of test or hosp note stating that pt has heart diease or what testing was done last so that he can be cleared. FAX [phone] Please advise. TING CONTRACTOR * Telephone Encounter - Radha Sewell MA - 06/25/2025 9:25 AM CDT Faxed cardiac clearance letter. * Telephone Encounter - Jey Hawley MD - 06/24/2025 4:47 PM CDT When I saw him recently denied any chest pain shortness breath. He also lost weight. Based on that patient can have surgery from cardiac standpoint with acceptable risk. His recent cardiac workup is negative for ischemia. * Telephone Encounter - Erica Boland - 06/24/2025 2:13 PM CDT Received cardiac clearance request FROM: [facility] FOR: Rt total knee arthroplasty PROCEDURE SCHEDULED: TBD LAST OFFICE VISIT: 05/01/25 NEXT OFFICE VISIT: 11/06/25 ANTICOAG: PENDING TESTING: FAX: [phone] documented in this encounter Plan of Treatment Not on file documented as of this encounter Visit Diagnoses Not on filedocumented in this encounter Care Teams Diploma Pharmacy Technician Relationship Specialty Start Date End Date Keturah Springer MD PCP - General Family Medicine 01/14/20 documented as of this encounter
--- OUTSIDE RECORDS SUMMARY | 2025-09-18 15:13 | XMS_ITS | Encounter Summary ---
Author Organization [facility] Healthcare Address [address] [place] [address] Care Team Providers Care Renal Dialysis Rn Name Role Phone Keturah Springer MD Primary Care Provider [phone] Reason for Visit * Reason Onset Date Comments Back Pain 09/17/2025 Encounter Details Date Type Department Care Team (Late st Contact Info) Description 09/17/2025 Nurse Triage [facility] Family Medicine [address] [place] [address] [address] [place] [address] Keturah Springer MD [address] [place] [address] [address] [place] [address] Social History Tobacco Use Types Packs/Day [...] on file Legal Sex Male 12:56 PM DENTAL CHAIRSIDE ASSISTANT Gender Identity Male 12/24/2021 4:10 PM DENTAL CHAIRSIDE ASSISTANT Sexual Orientation Not on file documented as of this encounter Miscellaneous Notes * Telephone Encounter - Agnes Espinoza RN - 09/17/2025 9:21 AM DENTAL CHAIRSIDE ASSISTANT Reason for Conversation Back Pain Background X2 weeks pain in low back/buttocks that radiates down front of left leg. Is having some improvementbut is getting TKR end of the month and wanted to have treatment for the back pain before this. No known injuries or activities to cause pain. Rates pain today 5-810. Pt is able to work. Certain movements or walking can bring on worsening pain. Denies abd pain, fever, urine s/s. RN gave care advice and scheduled at [facility] tomorrow as pt requested, no open OV to accommodate pt schedule. To call if worsens or needs f/u. Disposition See Within 3 Days in Office Reason for Disposition MODERATE back pain (e.g., interferes with normal activities) and present > 3 days Protocols Used Back [id number]-MS AL CHAIRSIDE ASSISTANT * Telephone Encounter - Agnes Espinoza RN - 09/17/2025 9:20 AM DENTAL CHAIRSIDE ASSISTANT Regarding: Moderate to Severe Sciatic pain from buttocks to left leg ----- Message from [place] R sent at 09/17/2025 9:15 AM DENTAL CHAIRSIDE ASSISTANT ----- Symptom Based Call Chief Complaint(s): Moderate to Severe Sciatic pain from buttocks to left leg Duration: 2 weeks What type of symptom(s) is the patient experiencing? Red Flag. Is the patient concerned they are experiencing a medical emergency requiring an ambulance? No Additional Comments: patient is able to go to work but must stop whenever pain hits Does message need to be routed? Yes-Action Needed AL CHAIRSIDE ASSISTANT documented in this encounter Plan of Treatment Not on file documented as of this encounter Visit Diagnoses Not on filedocumented in this encounter Care Teams Renal Dialysis Rn Relationship Specialty Start Date End Date Keturah Springer MD PCP - General Family Medicine 01/14/20 documented as of this encounter
[2025-09-18 15:33] LABS: Hematocrit 44.4 % (42.0-52.0); Hemoglobin 14.8 g/dL (14.0-18.0); Immature Granulocyte Percent A 0.2 % (0-0.5); Lymphocytes Absolute Auto 2.42 K/mm3 (0.9-3.2); Mean Corpuscular HGB Conc 33.3 g/dl (32-36); Mean Corpuscular Hemoglobin 27.9 pg (26-34); Mean Corpuscular Volume 83.6 fl (80-100); Nucleated Red Blood Cells Absolute Auto 0.000 K/mm3 (0.0-0.012); Nucleated Red Blood Cells Perc 0.0 % (0.0-0.2); Platelet Count Result 153 k/mm3 (150-375); Red Blood Count 5.31 M/mm3 (4.6-6.20); White Blood Count 6.2 K/mm3 (4.5-10.0)
[2025-09-18 15:45] LABS: Albumin Level 4.6 g/dL (3.5-5.1); Estimated Glomerular Filt Rate > 60; Glucose 90 mg/dL (65-110)
[2025-09-18 15:58] LABS: Hemoglobin A1C 5.9 % (<5.7)
[2025-09-18 16:44] LABS: MRSA (PCR) NOT DETECTED (NOT DETECTE)
== END 2025-09-18 13:51 | disposition home or self-care (01) ==
LOC: ANHSURGERY 13:56
PROVIDERS: PCP Family Medicine; Visit Provider Orthopaedic Surgery
DX: Z01.812 Encounter for preprocedural laboratory examination (principal); M17.11 Unilateral primary osteoarthritis, right knee
CPT/HCPCS: 80307; 82040; 82565; 82947; 83036; 85025; 87641

== ENCOUNTER 2025-10-15 00:11 | Day surgery (SDC) | payer OTHER, SELFPAY ==
[2025-09-18 14:09] VITALS: BMI 38.8
[2025-09-18 14:22] VITALS: BP 136/76; PULSE 66; RESP 16; TEMP 37.2; O2SAT 99
--- NOTE | 2025-09-18 14:42 | PC.NURSE ---
[facility] has started construction of its new state of the art ER which will open Spring 2026. With this, we anticipate parking may be a challenge for some our surgical patients and families. Parking spaces are limited but are available for all Surgical, obstetrics, and ER patients sharing this lot. If you arrive and find you are having a hard time finding a parking space, please note that we understand the challenges, please drive around the hospital and park near Hospital Entrance 1. When you enter this entrance, you can ask a volunteer to direct or take you back to the surgical waiting area to check in. We appreciate everyone?s understanding of these expected challenges while we build for your future. Report to the Outpatient Waiting Room, entrance under the green pavilion located off [address], at time ___6:00AM___ on date ___10/15/25__. Planned Procedure Time: ___7:30AM____.? Time changes happen often and if your time is changed the preop area will call you the afternoon before. - You and your visitor will be asked to self-screen and do not enter if you have any COVID symptoms. Please call surgeon if you need to reschedule. - A mask is optional within the hospital at this time. Patients may have clear liquids (water, carbonated beverages, clear teas, apple juice) until 3 hours prior to surgery (4:30AM) with a maximum of 20 ounces. - No food from midnight until time of surgery and no smoking, or chewing tobacco (or any form of nicotine). No chewing gum, candy or mints. Take only the following medications with a SIP of water on the morning of surgery: ____AMLODIPINE DO NOT STOP ANY OF YOUR OTHER PRESCRIPTION MEDICATIONS PRIOR TO SURGERY EXCEPT THE FOLLOWING Hold all vitamins and supplements for 3 days per anesthesiologist.--LAST DOSE 10/11/25 Medications to discontinue per physician __HOLD MELOXICAM (ALL NSAIDS) 7 DAYS PRE-OP PER DR OLIVA____ Date to take last dose 10/07/25 Please no make-up, nail vatican citizen, hairspray, perfume, deodorant, or body powder the day of surgery.? No jewelry (including any body piercings) or valuables the day of surgery, leave them at home.? Please take a shower or bath the night before, or the morning of, surgery with an antibacterial soap.? Wear comfortable, loose fitting clothing.? - Jewelry must be removed prior to entering the operating room.? Rings and piercings that are not removed may be cut off. - The hospital will not accept responsibility for valuables.? - Please leave all valuables, including medications, at home the day of surgery. If you are going home after surgery, a licensed tractor driver must drive you home.? - NO public transportation without another adult if you receive anesthesia. - We recommend that an adult stay with you for 24 hours following discharge. - We also recommend that you do not drive, make important decision, drink alcoholic beverages, or take any drugs that were not prescribed by your health care provider for at least 24 hours after your discharge time. Follow any additional instructions given to you from your surgeon. Telephone instructions given to ___PATIENT & NEPHEW and asked if any additional questions and then verbalized understanding. Patient advised to call surgeon office or pre surgery nurse liaison [phone] if any additional questions.
[2025-10-15] VITALS (12 sets, daily range): BP systolic 104–161; BP diastolic 57–83; PULSE 87–109; RESP 14–22; TEMP 36.2–36.8; O2SAT 91–100
--- NOTE | ~2025-10-15 | XR_ITS ---
EXAMINATION: [id number] DATE: 10/15/2025 15:04 HEALTH SCREENER INDICATION: Right total knee arthroplasty TECHNIQUE: 2 views right knee FINDINGS: There is a right total knee arthroplasty in expected position. Subcutaneous gas with fluid and air in the joint are consistent with recent surgery. No evidence of periprosthetic fracture. IMPRESSION: 1. Recent right total knee arthroplasty. Reviewed, dictated and finalized at location O. TH SCREENER
--- NOTE | 2025-10-15 10:40 | WPDHPUPDATE1 ---
History and Physical Update Update Date/Time: 10/15/25 10:40 History and Physical has been reviewed, including an updated exam of the patient. There are NO changes in the patient's condition. Risks, benefits, and alternatives have been discussed and questions answered. Patient agrees to proceed with procedure.
[2025-10-15] MEDS: LACTATED RINGERS 1,000 ML 30 ML IV CONT (11:00)
[2025-10-15] MEDS: ACETAMINOPHEN 500 MG TABLET 1000 MG PO (11:00)
[2025-10-15] MEDS: TRANEXAMIC ACID 1,000MG/ISO100 1,000 MG/100 ML BAG 200 MG IVPB (11:30)
[2025-10-15 11:56] LABS: Anion Gap 5 mmol/L (4-12); Blood Urea Nitrogen 17 mg/dL (9-20); Calcium 9.0 mg/dL (8.4-10.2); Carbon Dioxide 24 mmol/L (22-30); Chloride 107 mmol/L (98-107); Estimated CRCL calculation 79 ml/min; Estimated Glomerular Filt Rate > 60; Glucose 91 mg/dL (65-110); Potassium 4.2 mmol/L (3.4-5.0); Sodium 136 mmol/L (137-145)
--- NOTE | 2025-10-15 12:01 | WPDANESEPPF ---
Anes - Initial Pre Proc Eval Procedure: Operation Date: 10/15/25 12:00 Proposed Procedures p Right Custom Total Knee Arthroplasty - Hever Berumen MD Date/Time: 10/15/25 12:01 Surgeon: Hever Berumen MD Pre Op Diagnosis: primary OA right knee Patient Data Age: 65 Gender: M Height: 1.7 m Weight: 109.7 kg Last Vital Signs Temp 37.2 C 09/18/25 14:22 Pulse 66 09/18/25 14:22 Resp 16 09/18/25 14:22 BP 136/76 09/18/25 14:22 Pulse Ox 99 09/18/25 14:22 O2 Del Method Room Air 09/18/25 14:22 Allergies Allergy/AdvReac Type Severity Reaction Status Date / Time penicillin G AdvReac Abdominal Verified 10/15/25 11:34 Pain, DIARRHEA Home Medications ?Medication ?Instructions ?Recorded ?Confirmed ?Type amlodipine 10 mg tablet (Norvasc) 10 mg PO DAILY 11/27/24 09/18/25 History ascorbic acid (vitamin C) 500 mg 500 mg PO DAILY 11/27/24 09/18/25 History chewable tablet atorvastatin 10 mg tablet (Lipitor) 10 mg PO DAILY 11/27/24 09/18/25 History bempedoic acid 180 mg tablet 180 mg PO DAILY 11/27/24 09/18/25 History cholecalciferol (vitamin D3) 125 125 mcg PO DAILY 11/27/24 09/18/25 History mcg (5,000 unit) capsule ezetimibe 10 mg tablet 10 mg PO DAILY 11/27/24 09/18/25 History fexofenadine 180 mg tablet 180 mg PO DAILY PRN allergic 11/27/24 09/18/25 History (Allergy Relief (fexofenadine)) symptoms lisinopril 20 1 tablet PO DAILY 11/27/24 09/18/25 History mg-hydrochlorothiazide 25 mg tablet meloxicam 15 mg tablet 15 mg PO DAILY 11/27/24 09/18/25 History omeprazole 40 mg capsule,delayed 40 mg PO DAILY PRN indigestion 11/27/24 09/18/25 History release phentermine 37.5 mg capsule 37.5 mg PO DAILY 11/27/24 09/18/25 History aspirin 81 mg tablet,delayed 81 mg PO BID 14 days #28 tabs 10/15/25 Rx release oxycodone-acetaminophen 5 mg-325 1 - 2 tablet PO Q4-6H PRN pain 7 10/15/25 Rx mg tablet days #30 tabs prednisone 5 mg tablet 5 mg PO DAILY 3 weeks #21 tabs 10/15/25 Rx Laboratory Tests 10/15/25 10/15/25 10:34 11:23 Sodium 136 L mmol/L (137-145) Potassium 4.2 mmol/L (3.4-5.0) Chloride 107 mmol/L (98-107) Carbon Dioxide 24 mmol/L (22-30) Anion Gap 5 mmol/L (4-12) BUN 17 mg/dL (9-20) Creatinine 0.99 mg/dL (0.7-1.3) Estim Creat Clear Calc 79 ml/min Estimated GFR > 60 (59 - ) Glucose 91 mg/dL (65-110) Calcium 9.0 mg/dL (8.4-10.2) Blood Type B Positive Antibody Screen Negative Patient hx anesthesia problems: none Family hx anesthesia problems: none Results Review: All pre-operative results and documents have been reviewed as part of the pre-operative evaluation. [facility] Past Medical History Medical History Morbid obesity with BMI of 40.0-44.9, adult Osteoarthritis of right knee Type 2 diabetes mellitus Hyperlipidemia Hypertension Social History Social History Smoking status: Never smoker Tobacco type: cigarettes Lack of Transportation: No Lack of Food: Never True Current Housing: I Have Housing Concerned About Future Housing: No Difficulty Paying Gas/Electric Bills: No Difficulty Paying for Meds: No Currently Unemployed: No Education: High School Diploma/GED Difficulty w/ Childcare or Family Care: No Anes - Eval Final PreProcedure Day of Procedure 10/15/25 12:01 Patient weight: obese Heart: regular rate and rhythm Lungs: clear to auscultation Airway: Mallampati scale class III Neurological: alert and oriented Last oral intake: >/= 8 hours ASA classification: III Emergent: no Anesthetic plan: proceed Anesthesia type and monitoring: general LMA and standard monitoring Results Review: All pre-operative results and documents have been reviewed as part of the pre-operative evaluation. Informed Consent: The patient's anesthetic plan and its attendant risks and benefits were discussed with the patient/family/POA. Questions were solicited and answers provided to the satisfaction of the patient/family/POA.
[2025-10-15] MEDS: ceFAZolin 2 GM in SODIUM CHLORIDE 0.9% IV 50 ML 100 ML IVPB ×2 (12:07→21:45)
[2025-10-15] MEDS: SODIUM CHLORIDE 0.9% IV 37.7 ML, MORPHINE SULFATE INJ (*CRX) 2 MG, ROPivacaine HCL 1% 2... INFILTRATE (12:46)
[2025-10-15] MEDS: TRANEXAMIC ACID 1,000 MG/10 ML AMPUL 1000 MG IV PUSH (13:54)
--- NOTE | 2025-10-15 14:19 | W.PM.PROC2 ---
Procedure Note - Detailed Date of Procedure 10/15/25 Pre-op Diagnosis Right knee degenerative arthritis. Post-op Diagnosis Same Procedure Performed Custom total knee arthroplasty, right. Surgeon Hever Berumen MD Professor Of Biology Mary Cuadra PA-C Anesthesia General Findings Severe valgus disease. No releases required. Excellent bone quality. Standard resections with patient specific guides. Custom implants optimum fit. Description of Procedure Preoperative antibiotics were given. The limb was prepped and draped in the usual sterile fashion with a well-padded tourniquet high on the thigh. The limb was exsanguinated and the tourniquet inflated to 300 mmHg during exposure and cementation. A longitudinal incision was created just medial to the patella. A trivector approach to the knee was performed. Arthrotomy was taken down through the joint capsule. No significant releases were initially taken. The femur was exposed and the F1 jig was applied. The coring tool was used to remove the cartilage for the F2 jig to sit flush with the bone. The jig was pinned and the distal cut carefully taken. Caliper measurements confirmed appropriate bony resections according to the preoperative templated plan. The F4 cutting jig for the femur was applied, at the standard rotation. The AP and anterior chamfer cuts were taken. The F5 jig was applied and the posterior chamfer cuts were taken. The tibia was prepared using the T1 jig, after removing cartilage for the jig contact points. Proper alignment was checked with the alignment torie. The tibia was cut using the T1u guide. Gap balancing was performed. Gap measurements were taken and the knee was trialed. Excellent alignment and soft tissue balancing was confirmed. The posterior cruciate ligament was recessed along the proximal tibia. The patella was cut for resurfacing. Three lug holes were drilled. Meniscal remnants were removed. The trial components were assembled. Excellent range of motion and proper soft tissue balancing were confirmed throughout the full range of motion. Patellar tracking was excellent. The knee was copiously irrigated periodically throughout the procedure. The real implants were cemented into position. Excess cement was carefully removed. The wound was closed in layers with interrupted #1 Vicryl suture, 2-0 strata fix suture, 0 strata fix suture, 2-0 strata fix suture. Steri-Strips placed on the skin with the knee flexed. Sterile bulky dressing applied. The patient was brought to the recovery room in stable condition. There were no complications. Physician assistant maintenance manager, Mary Cuadra PA-C, required for surgery; including patient positioning, draping, tissue retraction, maintaining instrument position, cement removal, wound closure, and dressing placement. Implants Conformis Custom total knee arthroplasty. Cemented. Cruciate retaining. 7A insert. 41 mm oval patella. Estimated Blood Loss 150 Drains No Complications No immediate complications Condition Stable Disposition PACU [facility] Billing Surgery - Charge Forward: Surgery Billing
--- NOTE | 2025-10-15 16:13 | ADMGEN ---
This patient, Mello Fatima, was admitted to [facility] Room 321-01. Patient/family oriented to hospital policies and general routines including ID bracelet, bed and alarms, visiting hours, pain management, procedures, bathroom and other care routines, personal items, smoking policy, room service/diet, and visiting hours. Information on how to activate the Rapid Response Team has been discussed. Patient/Family are encouraged to report perceived risks to care and to ask questions if they do not understand what they are told or what they should do.
[2025-10-15] MEDS: ACETAMINOPHEN 325 MG TABLET 650 MG PO (17:14)
[2025-10-15] MEDS: MELOXICAM 7.5 MG TABLET PO (17:14)
[2025-10-15] MEDS: oxyCODONE/ACETAMINOPHEN (*CRX) 10-325 MG TABLET 1 TAB PO (17:14)
[2025-10-15] MEDS: SENNA/DOCUSATE SODIUM TABLET 2 TAB PO (17:17)
[2025-10-15] MEDS: HYDROmorphone HCL INJ (*CRX) 1 MG/ML SYR 0.5 MG IV PUSH (21:44)
[2025-10-15] MEDS: ASPIRIN 81 MG ENTERIC TABLET PO (21:45)
[2025-10-15] MEDS: FAMOTIDINE 20 MG TABLET PO (21:45)
[2025-10-16] MEDS: ACETAMINOPHEN 325 MG TABLET 650 MG PO ×2 (00:43→11:25)
[2025-10-16 01:31] VITALS: BP 154/75; PULSE 89; RESP 16; TEMP 36.1; O2SAT 97
[2025-10-16] MEDS: oxyCODONE/ACETAMINOPHEN (*CRX) 10-325 MG TABLET 1 TAB PO ×2 (03:43→11:28)
[2025-10-16] MEDS: ceFAZolin 2 GM in SODIUM CHLORIDE 0.9% IV 50 ML 100 ML IVPB ×2 (03:44→11:18)
[2025-10-16 05:25] VITALS: BP 152/75; PULSE 80; RESP 18; TEMP 36.2; O2SAT 97
[2025-10-16 07:03] LABS: Hematocrit 40.3 % (42.0-52.0); Hemoglobin 13.4 g/dL (14.0-18.0); Immature Granulocyte Percent A 0.5 % (0-0.5); Lymphocytes Absolute Auto 1.23 K/mm3 (0.9-3.2); Mean Corpuscular HGB Conc 33.3 g/dl (32-36); Mean Corpuscular Hemoglobin 28.0 pg (26-34); Mean Corpuscular Volume 84.3 fl (80-100); Nucleated Red Blood Cells Absolute Auto 0.000 K/mm3 (0.0-0.012); Nucleated Red Blood Cells Perc 0.0 % (0.0-0.2); Platelet Count Result 150 k/mm3 (150-375); Red Blood Count 4.78 M/mm3 (4.6-6.20); White Blood Count 8.7 K/mm3 (4.5-10.0)
[2025-10-16 07:14] LABS: Anion Gap 5 mmol/L (4-12); Blood Urea Nitrogen 15 mg/dL (9-20); Calcium 8.6 mg/dL (8.4-10.2); Carbon Dioxide 23 mmol/L (22-30); Chloride 105 mmol/L (98-107); Estimated CRCL calculation 84 ml/min; Estimated Glomerular Filt Rate > 60; Glucose 106 mg/dL (65-110); Potassium 3.8 mmol/L (3.4-5.0); Sodium 133 mmol/L (137-145)
[2025-10-16] MEDS: oxyCODONE/ACETAMINOPHEN (*CRX) 5-325 MG TABLET 1 TABLET PO (08:05)
--- NOTE | 2025-10-16 08:05 | P.PNOP_ITS ---
Progress Note: A&P Assessment and Plan (1) Status post total right knee replacement: Code(s): Z96.651 - Presence of right artificial knee joint Status: Acute Plan Postop day 1: Right total knee arthroplasty. Patient tolerated procedure well. No complications. Pain manageable with pain medication. No numbness or tingling. We had a lengthy discussion regarding postoperative wound care, limitations, expectations, and exercises. Patient shows good understanding. He has had initial physical therapy and is tolerating it. DVT prophylaxis: 81 mg baby aspirin b.i.d. for 14 days. Pain medication: Percocet. Ibuprofen. Prednisone. Patient has followup appointment with Dr. Berumen in 3 weeks. Subjective Subjective Date/Time Seen: 10/16/25 08:05 Interval history: Patient resting comfortably. No distal numbness or tingling. Notes achy pain in the knee. No other complaints. Review of Systems Review of Systems: All systems reviewed & are unremarkable except as noted in HPI and below Exam Narrative: 65-year-old overweight male. Resting comfortably in bed. Alert and oriented x3. No acute distress. Wearing compression socks bilaterally. Dressing dry and intact without drainage. Mild swelling. No ecchymosis. No erythema. No hematoma. Range of motion limited due to pain. Calf nontender. Neurologic status intact. No varicosities. Distal pulses palpable. Objective Data Vital Signs Vital Signs: Vital Signs - 24 hr 10/15/25 14:24 10/15/25 14:40 10/15/25 14:52 Temperature 98.2 F Pulse Rate 106 H 98 109 H Respiratory Rate 14 20 22 H Blood Pressure 123/65 104/57 L 111/59 L Pulse Oximetry 96 97 97 Oxygen Delivery Simple Face Mask Simple Face Mask Simple Face Mask Oxygen Flow Rate 6 10 10 10/15/25 14:55 10/15/25 15:10 10/15/25 15:25 Temperature Pulse Rate 106 H 101 H 99 Respiratory Rate 16 16 14 Blood Pressure 127/63 126/68 116/68 Pulse Oximetry 98 92 91 Oxygen Delivery Simple Face Mask Room Air Room Air Oxygen Flow Rate 10 10/15/25 15:40 10/15/25 15:46 10/15/25 16:01 Temperature 97.6 F 97.5 F L Pulse Rate 99 99 87 Respiratory Rate 14 16 16 Blood Pressure 134/66 133/73 130/72 Pulse Oximetry 99 99 99 Oxygen Delivery Room Air Oxygen Flow Rate 10/15/25 16:31 10/15/25 17:31 10/15/25 20:58 Temperature 97.4 F L 97.1 F L 97.8 F Pulse Rate 92 89 94 Respiratory Rate 14 16 18 Blood Pressure 136/83 161/76 H 128/66 Pulse Oximetry 100 98 99 Oxygen Delivery Oxygen Flow Rate 10/16/25 01:31 10/16/25 05:25 Temperature 97.0 F L 97.1 F L Pulse Rate 89 80 Respiratory Rate 16 18 Blood Pressure 154/75 H 152/75 H Pulse Oximetry 97 97 Oxygen Delivery Oxygen Flow Rate Intake/Output Intake/Output: Intake & Output 10/13/25 10/14/25 10/15/25 10/16/25 23:59 23:59 23:59 23:59 Intake Total 770 1200 Output Total 1100 Balance 770 100 Meds/Results Medications: Active Medications Generic Name Dose Route Start Last Admin Trade Name Freq PRN Reason Stop Dose Admin Acetaminophen 650 mg 10/15/25 16:00 10/16/25 06:03 Acetaminophen 325 Mg Tablet PO Not Given Q6HR LITTLE Amlodipine Besylate 10 mg 10/16/25 09:00 Amlodipine Besylate 10 Mg Tablet PO DAILY LITTLE Aspirin 81 mg 10/15/25 21:00 10/15/25 21:45 Aspirin 81 Mg Enteric Tablet PO 81 mg Q12HR LITTLE Administration Atorvastatin Calcium 10 mg 10/16/25 09:00 Atorvastatin 10 Mg Tablet PO DAILY LITTLE Cyclobenzaprine HCl 5 mg 10/15/25 15:46 Cyclobenzaprine Hcl 5 Mg Tablet PO Q8H PRN Spasms Diphenhydramine HCl 25 mg 10/15/25 15:46 Diphenhydramine Hcl Inj 50 Mg/Ml Vial IV PUSH Q6H PRN Itching Ezetimibe 10 mg 10/16/25 09:00 Ezetimibe 10 Mg Tablet PO DAILY LITTLE Famotidine 20 mg 10/15/25 21:00 10/15/25 21:45 Famotidine 20 Mg Tablet PO 20 mg Q12HR LITTLE Administration Hydrochlorothiazide 25 mg 10/16/25 09:00 Hydrochlorothiazide 25 Mg Tablet PO QAM LITTLE Hydromorphone HCl 1 mg 10/15/25 15:46 Hydromorphone Hcl Inj (*Crx) 1 Mg/Ml Syr IV PUSH Q2H PRN Breakthrough Pain Rated 7-10 or NPO Hydromorphone HCl 0.5 mg 10/15/25 15:46 10/15/25 21:44 Hydromorphone Hcl Inj (*Crx) 1 Mg/Ml Syr IV PUSH 0.5 mg Q2H PRN Administration Breakthrough Pain Rated 4-6 or NPO Cefazolin Sodium 2 gm/ Sodium 50 mls @ 100 mls/hr 10/15/25 20:00 10/16/25 03:44 Chloride IVPB 10/16/25 12:29 100 mls/hr Q8H LITTLE Administration Lisinopril 20 mg 10/16/25 09:00 Lisinopril 20 Mg Tablet PO QAM LITTLE Meloxicam 7.5 mg 10/15/25 17:00 10/15/25 17:14 Meloxicam 7.5 Mg Tablet PO 7.5 mg BID LITTLE Administration Naloxone HCl 0.1 mg 10/15/25 15:46 Naloxone Hcl 0.4 Mg/Ml Vial IV PUSH Q2M PRN Opiate Reversal Ondansetron HCl 4 mg 10/15/25 15:46 Ondansetron Inj 4 Mg/2 Ml Vial IV PUSH Q4H PRN Nausea And Vomiting Oxycodone/Acetaminophen 1 tablet 10/15/25 15:46 Oxycodone/Acetaminophen (*Crx) 5-325 Mg Tablet PO Q4H PRN Pain Rated 4-6 Oxycodone/Acetaminophen 1 tab 10/15/25 15:46 10/16/25 03:43 Oxycodone/Acetaminophen (*Crx) 10-325 Mg Tablet PO 1 tab Q6H PRN Administration Pain Rated 7-10 Pantoprazole Sodium 40 mg 10/15/25 16:00 Pantoprazole 40 Mg Tablet PO BID PRN indigestion Polyethylene Glycol 17 gm 10/16/25 09:00 Polyethylene Glycol 3350 17 Gm Powd.Pack PO QAM LITTLE Prednisone 5 mg 10/15/25 17:00 10/15/25 17:15 Prednisone 5 Mg Tablet PO 5 mg DAILY@1700 LITTLE Administration Senna/Docusate Sodium 2 tab 10/15/25 17:00 10/15/25 17:17 Senna/Docusate Sodium Tablet PO 2 tab BID LITTLE Administration Tramadol HCl 50 mg 10/15/25 15:46 Tramadol Hcl (*Crx) 50 Mg Tablet PO Q4H PRN Pain Rated 1-3 Radiology Results: ITS Impressions Knee X-Ray 10/15/25 15:03 IMPRESSION: 1. Recent right total knee arthroplasty. Labs Labs: Laboratory Results - last 24 hr 10/15/25 10/15/25 10/15/25 10:34 11:23 14:40 WBC RBC Hgb Hct MCV MCH MCHC RDW Plt Count MPV Immature Gran % (Auto) Neut % (Auto) Lymph % (Auto) [place] % (Auto) Eos % (Auto) Baso % (Auto) Lymph # (Auto) [place] # (Auto) Eos # (Auto) Baso # (Auto) Abs Immat Gran (auto) Absolute Neuts (auto) Absolute Nucleated RBC Nucleated RBC % Sodium 136 L Potassium 4.2 Chloride 107 Carbon Dioxide 24 Anion Gap 5 BUN 17 Creatinine 0.99 Estim Creat Clear Calc 79 Estimated GFR > 60 Glucose 91 POC Capillary Glucose 109 H Calcium 9.0 Blood Type B Positive Antibody Screen Negative 10/15/25 10/16/25 20:37 06:32 WBC 8.7 RBC 4.78 Hgb 13.4 L Hct 40.3 L MCV 84.3 MCH 28.0 MCHC 33.3 RDW 13.1 Plt Count 150 MPV 10.9 H Immature Gran % (Auto) 0.5 Neut % (Auto) 76.1 H Lymph % (Auto) 14.[address] [place] % (Auto) 8.5 Eos % (Auto) 0.5 Baso % (Auto) 0.2 Lymph # (Auto) 1.23 [place] # (Auto) 0.7 H Eos # (Auto) 0.0 Baso # (Auto) 0.0 Abs Immat Gran (auto) 0.04 H Absolute Neuts (auto) 6.6 Absolute Nucleated RBC 0.000 Nucleated RBC % 0.0 Sodium 133 L Potassium 3.8 Chloride 105 Carbon Dioxide 23 Anion Gap 5 BUN 15 Creatinine 0.92 Estim Creat Clear Calc 84 Estimated GFR > 60 Glucose 106 POC Capillary Glucose 127 H Calcium 8.6 Blood Type Antibody Screen
[2025-10-16 08:42] VITALS: BP 119/83; PULSE 71; RESP 18; TEMP 36.2; O2SAT 99
[2025-10-16] MEDS: EZETIMIBE 10 MG TABLET PO (09:04)
[2025-10-16] MEDS: ASPIRIN 81 MG ENTERIC TABLET PO (09:04)
[2025-10-16] MEDS: SENNA/DOCUSATE SODIUM TABLET 2 TAB PO (09:04)
[2025-10-16] MEDS: MELOXICAM 7.5 MG TABLET PO (09:04)
[2025-10-16] MEDS: FAMOTIDINE 20 MG TABLET PO (09:04)
[2025-10-16] MEDS: ATORVASTATIN 10 MG TABLET PO (09:04)
[2025-10-16 11:50] VITALS: BP 176/79; PULSE 65; RESP 16; TEMP 36.2; O2SAT 98
== END 2025-10-16 15:20 | disposition home or self-care (01) ==
LOC: ANHSURGERY 10:38 → ANH3MEDSUR 15:47
PROVIDERS: Anesthesiology; Physician Assistant Surgical; PCP Family Medicine; Visit Provider Orthopaedic Surgery
PROC: (CPT 27447; principal; 2025-10-15 12:00)
DX: M17.11 Unilateral primary osteoarthritis, right knee (principal); E11.9 Type 2 diabetes mellitus without complications; E66.9 Obesity, unspecified; Z68.37 Body mass index [BMI] 37.0-37.9, adult
CPT/HCPCS: 27447; 36415; 73560; 80048; 82948; 85025; 86850; 86900; 86901; 97110; 97161; 97165; 97530; J0690; A9270; C1713; C1776; J0166; J1171; J1885; J2250; J2270; J2704; J2795; J3290; J7120; J7512